=== PATIENT | female | born 1995 | race African-American/Black ===

== ENCOUNTER 2020-10-26 17:31 | Emergency (ER) | payer MEDICAID ==
[~2020-10-26] VITALS: Ht 167.6 cm; Wt 80.0 kg
[2020-10-26] MEDS ORDERED: IBUP-2029 MT (18:21)
[2020-10-26] MEDS ORDERED: CYCL10TA7 MT (18:23)
[2020-10-26] MEDS ORDERED: KETOROLAC 60MG/2ML VIAL IM ONE (18:30)
[2020-10-26] MEDS ORDERED: DEXAMETHASONE 2MG TABLET PO ONE (18:30)
[2020-10-26 18:35] VITALS: BP 128/70
== END 2020-10-26 18:36 | disposition home or self-care (01) ==
LOC: ER 17:51
DX: S09.90XA Unspecified injury of head, initial encounter (principal); V49.9XXA Car occupant (driver) (passenger) injured in unspecified traffic accident, initial encounter; Y93.89 Activity, other specified; Y92.89 Other specified places as the place of occurrence of the external cause; Y99.8 Other external cause status
CPT/HCPCS: 99283; J8540